=== PATIENT | male | born 1935 | race Caucasian/White ===

== ENCOUNTER → 2016-03-24 | Outpatient (CLI) | payer MEDICARE, OTHER ==
[~2016-03-24] MED LIST: GASTROGRAFIN SOLUTION 30ML (Q9963) As Ordered ONE; ISOVUE-370 76% 100ML VIAL (Q9967) As Ordered ONE
--- NOTE | 2016-03-24 16:20 | REP ---
CT abdomen and pelvis initially without contrast, with IV and oral contrast and 2-minute delayed of the abdomen performed: 03/24/2016: Comparison: CT abdomen pelvis 12/13/2015, without followed by with contrast, and CT of the abdomen pelvis 12/13/2015. Technique: After drinking two cups of oral contrast each containing 10 mL gastrographin and 290 mL water, 3 mm spiral axial sections were performed through abdomen. Subsequently following IV contrast administration of 100 mL Isovue-370 mg/ml, 3 mm spiral axial sections performed through abdomen and pelvis. Delayed 2-minute images were subsequently performed through the abdomen. Findings: There is moderate diffuse fatty infiltration of liver. The liver is 15 cm cranial caudal dimension. Spleen, pancreas are normal. Gallbladder is mildly elongated without stones, wall thickening, or biliary dilatation. There is a 3.8 cm hiatal hernia not significantly changed. The stomach is underdistended. The small bowel is without obstruction. Previous right hemicolectomy and ileocolic anastomosis noted at the level of the hepatic flexure. Kidneys are without hydronephrosis. There are bilateral extrarenal pelves, and small amount of perinephric stranding is noted bilaterally and unchanged, most compatible with scarring. Exophytic cyst of 1.7 cm diameter is noted off the posterior superior pole left kidney, stable . Atherosclerotic changes are noted in the aorta Bladder is normal. Prostate is not enlarged. There are scattered diverticula within the descending and proximal sigmoid. There is no free air or ascites. There are no lytic or blastic lesions of bone. Impression: Moderate diffuse fatty infiltration of liver without focal lesions. Prior right hemicolectomy. No evidence of bowel obstruction. Sigmoid diverticulosis. Signed by Liz Pino MD 03/24/2016 09:09 P
--- NOTE | 2016-03-24 20:51 | REP ---
CT chest with IV contrast 03/24/2016 Indication: Colon cancer restaging after 2 months 5-FU chemotherapy Comparison: CT chest 12/13/2015, PET scan 12/26/15 Technique: Following dynamic IV contrast administration with 100 ml Isovue 370 mg/ml, 3 mm contiguous spiral axial sections were performed through the chest Findings: Atherosclerotic changes are noted in the thoracic aortic arch. There is no thoracic aortic aneurysm or dissection. The heart is of normal size. There are moderate coronary artery calcifications. There are no pathologically enlarged mediastinal or hilar lymph nodes. As previously noted there is focal moderate eventration of the anterior and medial aspect of the right hemidiaphragm. There is hyperinflation bilaterally consistent with COPD. There are no infiltrates or pleural effusions. 5.5 mm ovoid nodule within the superior segment right lower lobe on image 56 is unchanged, as well as 3.7 mm round nodule, also indeterminate on image 59 series 304 in the superior segment right lower lobe. Stable focus of pleural nodularity is seen on image 60 series 304 in the right lower lobe Impression 1. COPD with three noncalcified pulmonary nodules within the right lower lobe, largest 5.5 mm maximal dimension and image 56 series 304. These are stable could represent even fibrotic scarring. However interval follow-up CT of chest is recommended in 3 months' for reevaluation. Signed by Liz Pino MD 03/24/2016 08:42 P
== END ==
LOC: M RAD 11:59
PROVIDERS: ATTEND Internal Medicine Medical Oncology
DX: C18.9 Malignant neoplasm of colon, unspecified (principal); R91.8 Other nonspecific abnormal finding of lung field; K57.30 Diverticulosis of large intestine without perforation or abscess without bleeding; K76.0 Fatty (change of) liver, not elsewhere classified; J44.9 Chronic obstructive pulmonary disease, unspecified
CPT/HCPCS: 71260; 74178; Q9963; Q9967

== ENCOUNTER → 2016-03-26 | Outpatient (REF) | payer MEDICARE, OTHER ==
[2016-03-28 09:32] LABS: CARCINOEMBRYONIC ANTIGEN 2.8 NG/ML (<2.5)
== END ==
LOC: M LAB REF 12:59
PROVIDERS: ATTEND Internal Medicine Medical Oncology
DX: C18.9 Malignant neoplasm of colon, unspecified (principal)

== ENCOUNTER → 2016-05-12 | Outpatient (REF) | payer MEDICARE, OTHER | LOC: M LAB REF 16:58 | PROVIDERS: ATTEND Internal Medicine Medical Oncology | DX: C18.9 Malignant neoplasm of colon, unspecified (principal) ==

== ENCOUNTER → 2016-06-09 | Outpatient (REF) | payer MEDICARE, OTHER | LOC: M LAB REF 13:10 | PROVIDERS: ATTEND Internal Medicine Medical Oncology | DX: C18.9 Malignant neoplasm of colon, unspecified (principal) ==

== ENCOUNTER → 2016-06-13 | Outpatient (CLI) | payer MEDICARE, OTHER ==
--- NOTE | 2016-06-13 22:47 | REP ---
CT ABDOMEN AND PELVIS WITH CONTRAST: 06/13/2016. Comparison 03/24/2016, 12/13/2015, PET/CT 12/26/2015. Clinical history: Restaging colon carcinoma. Technique: Oral Gastrografin mixture 10 ml in 290 ounces of flavored water for two doses per our bowel contrast protocol and scanning through the abdomen followed by bolus of 100 ml Isovue 370, scanning through the abdomen and pelvis and then delayed images through the abdomen. Coronal and sagittal reconstructions were obtained through the abdomen and pelvis. CT abdomen: The lung bases show no pleural effusion, focal pleural thickening or parenchymal mass. There is a small hiatal hernia. There are a couple of tiny nodules in the right lower lobe medial basal segment, unchanged from prior studies, the larger 6 mm, the smaller 5 mm. Some mild cylindrical bronchiectatic changes are noted. Heart is not enlarged. There is no pericardial thickening or effusion. Calcifications at the aortic root and mitral annulus are noted. No pericardial thickening or effusion. There is fatty infiltration of the liver. There is no hepatosplenomegaly. Eventration of the right diaphragm is noted. No hepatic mass or biliary dilatation is noted. No splenomegaly or focal lesion. I see no ascites. Gallbladder is contracted without calcified stone or mass. Adrenal glands intact. Upper pole left kidney shows an exophytic cyst as well as scarring. There is a small cortical cyst in the interpolar region of the right kidney towards the upper pole. No hydronephrosis, stone, solid mass or perinephric edema. Ureters show normal course to the bladder and without stone or filling defect, otherwise. Both kidneys show extrarenal pelves. The aorta has diffuse atherosclerotic calcifications without aneurysm or dissection. Pancreas intact. Small bowel loops and colon grossly intact. Small bowel loops are grossly intact. The colon unchanged. I see no evidence of colonic mass, colitis or diverticulitis. There is retroperitoneal mass lesion just anterior to the iliac crest and posterior to the pararenal space. It measures 3.4 cm vertically x 2.1 x 1.6 cm. On the previous study it was 2.5 x 1.8 x 1.5 cm by my direct measurement today. No ventral hernia. Bone windows show degenerative changes lumbar and lower thoracic spine with some facet arthritis, unchanged. No destructive lesion. CT pelvis: Bony hips, pelvis, sacrum, SI joints, and lumbosacral junction show degenerative changes and demineralization. There is diverticulosis distal left colon and sigmoid without diverticulitis, colitis, stricture or mass. Calcifications in the prostate, which is diminutive. There is no ventral or inguinal hernia nor pathologic inguinal adenopathy. Bladder without wall thickening, mass or stone. The ureteral dilatation. No pelvic lymphadenopathy. No perirectal space mass or inflammatory change. No ascites. Impression: 1. There is a 3.4 x 2.1 x 1.6 cm mass in the retroperitoneum on the right anterior to the iliac crest and posterior to Gerota's fascia of the pararenal space. This is increased in size as detailed above. 2. Prior right hemicolectomy with no colitis or diverticulitis. There is diverticulosis of the sigmoid. 3. Fatty infiltration of the liver without any other significant or acute finding. Signed by Mohinder Elmore MD 06/14/2016 08:11 P
== END ==
LOC: M RAD 16:02
PROVIDERS: ATTEND Internal Medicine Medical Oncology
DX: C18.9 Malignant neoplasm of colon, unspecified (principal)
CPT/HCPCS: 74178; Q9963; Q9967

== ENCOUNTER → 2016-06-25 | Outpatient (CLI) | payer MEDICARE, OTHER ==
--- NOTE | 2016-06-26 09:54 | REP ---
PET/CT: History: Restaging colon cancer. Evaluate retroperitoneal metastatic mass and rule out other foci of metastasis. Comparisons: Comparison CT study June 13, 2016 of the abdomen and pelvis. Comparison chest CT study March 24, 2016. Comparison PET/CT December 26, 2015. TECHNIQUE: 46 minutes following the intravenous injection of a 10.6 mCi dose of F-18 FDG, three-dimensional PET scintigraphy is acquired from the skull base to the proximal thighs. Triplanar noncontrast CT scanning is acquired through the same anatomic range for attenuation correction, and image registration with scan parameters optimized to minimize radiation exposure to the patient. PET scintigraphy and CT datasets were fused and displayed on a workstation with multiplanar and projection display capability. PET/CT Findings: The previously noted right iliac fossa retroperitoneal metastasis is again seen and is again noted to be hypermetabolic. Maximum standard uptake value today is 17.7, previously 26.1. It is smaller than on the comparison PET/CT, however it is larger than on the interval CT study of the abdomen from March 24, 2016. Indeed, it appears slightly larger on today's accompanying CT study than on the recent prior CT of June 13, 2016. Today's measurements are 2.7 x 1.7 x 4.1 cm. This compares with reported dimensions on June 13, 2016 of 2.1 x 1.6 x 3.4 cm. No other abdominal or pelvic hypermetabolic uptake is seen. No abnormal hepatic uptake is observed. No abnormal uptake is seen in the chest or head and neck soft tissues. Impression: The right iliac fossa retroperitoneal metastasis shows evidence of progression since the March 24, 2016 study and may even have increased in size since the June 13, 2016 CT. It remains hypermetabolic, SUV value 17.7 today. Signed by Syd Pires MD 06/26/2016 12:39 P
== END ==
LOC: M RAD 16:33
PROVIDERS: ATTEND Internal Medicine Medical Oncology
DX: C18.9 Malignant neoplasm of colon, unspecified (principal)
CPT/HCPCS: 78815; A9552

== ENCOUNTER → 2016-07-03 | Outpatient (REF) | payer MEDICARE, OTHER ==
[2016-07-03 14:11] LABS: INR 1.1
== END ==
LOC: M LAB REF 13:37
PROVIDERS: ATTEND Internal Medicine Medical Oncology
DX: C18.9 Malignant neoplasm of colon, unspecified (principal)

== ENCOUNTER → 2016-07-09 | Outpatient (REF) | payer MEDICARE, OTHER | LOC: M LAB REF 17:15 | PROVIDERS: ATTEND Internal Medicine Medical Oncology | DX: C18.9 Malignant neoplasm of colon, unspecified (principal) ==

== ENCOUNTER → 2016-07-23 | Outpatient (REF) | payer MEDICARE, OTHER ==
[2016-07-25 08:44] LABS: CARCINOEMBRYONIC ANTIGEN 17.9 NG/ML (<2.5)
== END ==
LOC: M LAB REF 16:33
PROVIDERS: ATTEND Internal Medicine Medical Oncology
DX: C18.9 Malignant neoplasm of colon, unspecified (principal)

== ENCOUNTER → 2016-08-06 | Outpatient (CLI) | payer MEDICARE, OTHER ==
--- NOTE | 2016-08-06 15:59 | REP ---
Left lower extremity Duplex Doppler venous ultrasound: Real time compression and duplex Doppler interrogation of the left lower extremity deep venous system is performed. The left common femoral, superficial femoral and popliteal veins are fully compressible with transducer pressure and demonstrate normal spontaneous and phasic flow, without evidence of deep venous thrombosis. Impression: No evidence of deep venous thrombosis of the left lower extremity femoral popliteal venous system. Signed by Christ Altman MD 08/06/2016 03:51 P
== END ==
LOC: M RAD 15:23
PROVIDERS: ATTEND Internal Medicine Medical Oncology
DX: M79.605 Pain in left leg (principal)

== ENCOUNTER → 2016-08-20 | Outpatient (REF) | payer MEDICARE, OTHER | LOC: M LAB REF 17:46 | PROVIDERS: ATTEND Internal Medicine Medical Oncology | DX: C18.9 Malignant neoplasm of colon, unspecified (principal) ==

== ENCOUNTER → 2016-09-01 | Outpatient (CLI) | payer MEDICARE, OTHER ==
--- NOTE | 2016-09-01 13:21 | REP ---
Clinical: History of colon cancer with retroperitoneal mass. Technique: Axial contrast enhanced images from the lung bases to the pubic symphysis using oral and 100 ml Isovue 370 intravenous contrast material with precontrast and delayed images of the abdomen as well as coronal and sagittal re-formations. Comparison: 06/13/2016, 03/24/2016. Findings: Small scattered pulmonary nodules are identified and appear slightly more prominent than prior examination suggesting the possibility of pulmonary metastatic disease and follow-up is recommended. Changes to the lingula and anterior left lower lobe are similar to prior examination and may represent chronic interstitial changes. Fatty infiltration to the liver noted without focal hepatic lesion identified. Spleen, pancreas, gallbladder, bilateral adrenal glands are normal. Kidneys are relatively normal / stable and again demonstrate few bilateral cysts measuring up to 1.9 cm. The enteric system is without obstruction or acute inflammatory process. A moderate hiatal hernia is identified at the gastroesophageal junction. Colonic and predominant sigmoid diverticulosis noted without acute diverticulitis. Pelvis demonstrates normal bladder. Coarse calcifications in an otherwise normal prostate gland are again identified. A small retroperitoneal soft tissue nodule in the right pericolic gutter within the pelvis currently measures 13 mm maximal diameter and demonstrates subtle surrounding fibrosis, but appears decreased in size when compared to prior examinations. No further intra-abdominal or retroperitoneal lesions or metastatic foci are identified. No ascites. No free air. No intraperitoneal or retroperitoneal adenopathy. Vasculature demonstrates atherosclerotic changes without aneurysm or dissection. Musculoskeletal structures demonstrate degenerative changes without focal osseous abnormality. Impression: 1. The previously identified nodule in the right pericolic gutter within the retroperitoneum currently measures 13 mm maximal diameter and appears decreased in size when compared to prior examination. No further scattered metastatic foci are identified within the abdomen or pelvis. 2. Diverticulosis. 3. Small to moderate hiatal hernia. 4. Fatty infiltration to the liver without focal hepatic lesion identified. 5. Small scattered noncalcified pulmonary nodules appear slightly more conspicuous than prior examination and concerning for active metastatic disease. Follow-up examination may be warranted. Signed by Gian Giordano MD 09/01/2016 01:13 P
--- NOTE | 2016-09-01 13:34 | REP ---
Clinical: Metastatic colon cancer. Technique: Axial contrast enhanced images from the thoracic inlet to the upper abdomen using 100 ml Isovue 370 intravenous contrast material with coronal and sagittal re-formations. Comparison: 12/13/2015. Findings: The lung domingo demonstrate chronic changes including no chronic interstitial changes primarily noted in the lingula and anterior left lower lobe which remain relatively stable. Few scattered noncalcified nodules are identified predominate in the right lower lung zone measuring up to approximately 6 mm and appear relatively similar to prior examination. While these findings may be stable, given the patient's history active metastatic disease cannot definitively be excluded based on short-term interval follow-up. No new acute consolidation, nodule or mass lesion otherwise appreciated. No pleural effusion/reaction or pneumothorax. Tracheobronchial tree is patent. No obvious axillary, hilar, or mediastinal adenopathy. Mediastinum demonstrates normal thoracic aorta and heart/pericardium. Moderate hiatal hernia at the gastroesophageal junction. Upper abdomen demonstrates fatty infiltration to the liver and 1.9 cm left renal cyst. Impression: 1. Lung domingo demonstrate chronic interstitial changes primarily involving the lingula and left base. Few scattered soft tissue nodules are again identified similar to 12/13/2015. While no significant change is appreciated, metastatic disease cannot definitively be excluded based on current short-term follow-up. Consider reevaluation at 3-6 months. 2. Limited abdominal findings as described above including fatty infiltration to the liver and 1.9 cm left renal cyst. Signed by Gian Giordano MD 09/01/2016 01:25 P
== END ==
LOC: M RAD 10:44
PROVIDERS: ATTEND Internal Medicine Medical Oncology
DX: C18.9 Malignant neoplasm of colon, unspecified (principal); K57.30 Diverticulosis of large intestine without perforation or abscess without bleeding; K44.9 Diaphragmatic hernia without obstruction or gangrene; K76.0 Fatty (change of) liver, not elsewhere classified; R91.8 Other nonspecific abnormal finding of lung field
CPT/HCPCS: 71260; 74178; Q9963; Q9967

== ENCOUNTER → 2016-09-02 | Outpatient (REF) | payer MEDICARE, OTHER ==
[2016-09-04 12:00] LABS: FREE T4 2.48 NG/DL (0.76-1.46); THYROXINE (T4) 16.3 UG/DL (4.5-12.0)
== END ==
LOC: M LAB REF 14:17
PROVIDERS: ATTEND Internal Medicine Medical Oncology
DX: C18.9 Malignant neoplasm of colon, unspecified (principal); Z79.899 Other long term (current) drug therapy

== ENCOUNTER → 2016-09-17 | Outpatient (REF) | payer MEDICARE, OTHER | LOC: M LAB REF 16:39 | PROVIDERS: ATTEND Internal Medicine Medical Oncology | DX: C18.9 Malignant neoplasm of colon, unspecified (principal) ==

== ENCOUNTER → 2016-10-01 | Outpatient (REF) | payer MEDICARE, OTHER | LOC: M LAB REF 16:35 | PROVIDERS: ATTEND Internal Medicine Medical Oncology | DX: C18.9 Malignant neoplasm of colon, unspecified (principal) ==

== ENCOUNTER → 2016-10-14 | Outpatient (CLI) | payer MEDICARE, OTHER ==
--- NOTE | 2016-10-15 10:15 | REP ---
Whole body PET CT scan: Comparisons are the whole-body PET CT scan dated 06/25/2016, recent CT of the chest abdomen pelvis dated 09/01/[address] of the abdomen pelvis dated 06/13/2016. Whole-body scanning is performed from skull base to the upper thighs. Neck and supraclavicular areas: There are no hypermetabolic foci. Chest: There are no hypermetabolic foci. Abdomen, pelvis and upper thighs: The previous hypermetabolic focus in the right iliac fossa is no longer present. The focal soft tissue nodule is again identified today measuring 1.4 cm in diameter, however, this nodule no longer demonstrates radio labeling. The standard uptake value today is maximally 1.2. On the comparison CT of 06/13/2016, this nodule measured 21 mm maximally and on the comparison CT of 09/01/2016, this nodule maximally measured 14 mm. This is similar to The measurement on the current PET scan today. There are no other hypermetabolic foci in the abdomen, pelvis or upper thighs. Specifically there are no hepatic foci. Impression: There are no hypermetabolic foci. The previously identified hypermetabolic focus in the right iliac fossa no longer demonstrates radiolabeling. There is a persisting 1.4 cm nodule on the accompanying CT, now likely a fibrotic node. There are no other hypermetabolic foci, as previously. The study is performed 10 mCi of F 18 FDG. Signed by Christ Garcias MD 10/15/2016 10:07 A
== END ==
LOC: M PLARAD 10:29
PROVIDERS: ATTEND Internal Medicine Medical Oncology
DX: C18.9 Malignant neoplasm of colon, unspecified (principal)
CPT/HCPCS: 78815; A9552

== ENCOUNTER → 2016-12-22 | Outpatient (REF) | payer MEDICARE, OTHER | LOC: M LAB REF 13:15 | PROVIDERS: ATTEND Internal Medicine Medical Oncology | DX: D69.6 Thrombocytopenia, unspecified (principal) ==

== ENCOUNTER → 2017-01-20 | Outpatient (CLI) | payer MEDICARE, OTHER ==
--- NOTE | 2017-01-20 13:38 | REP ---
Clinical: Colon cancer for restaging and follow-up. Technique: Axial contrast enhanced images from the lung bases to the pubic symphysis using oral and 100 ml Isovue 370 intravenous contrast material with precontrast and delayed images of the abdomen as well as coronal and sagittal re-formations. Comparison: 09/01/2016. Findings: Lung bases demonstrate few small scattered pulmonary noncalcified nodules - the largest of which are noted in the medial posterior right lower lobe (images 1 - 4) which appear less prominent than prior examination. Atherosclerotic changes to the thoracic aorta and coronary arteries noted without cardiomegaly. Moderate hiatal hernia at the gastroesophageal junction. Liver, spleen, pancreas, gallbladder, and bilateral adrenal glands are normal / stable. The kidneys demonstrate age-related atrophy and cortical thinning along with 1.7 cm stable left renal cyst and suspected bilateral subcentimeter cysts. Evaluation of the enteric system again demonstrates prior right hemicolectomy with anterior colonic anastomosis at the mid transverse colon. Colonic diverticulosis noted. No acute bowel obstruction or inflammatory process identified. Pelvis demonstrates normal bladder and age appropriate prostate/seminal vesicles. The previously noted soft tissue nodule in the right pericolic gutter which measured approximately 1.5 cm. Identified on current examination. No ascites. No obvious intraperitoneal or retroperitoneal adenopathy. No focal mass lesion. Atherosclerotic changes of the aorta and vasculature noted without aneurysm. Musculoskeletal structures demonstrate age-related degenerative changes without focal osseous abnormality. Impression: 1. The previously identified soft tissue nodule along the right pericolic gutter is no longer visualized on current examination. 2. Small noncalcified pulmonary nodules appeared decreased in size and improved. 3. Diverticulosis without acute diverticulitis. 4. Stable hiatal hernia. 5. No acute abdominopelvic pathology and no evidence for recurrence or new mass lesion. Signed by Gian Giordano MD 01/20/2017 01:30 P
--- NOTE | 2017-01-20 13:44 | REP ---
Clinical: History of colon cancer for restaging and follow-up. Technique: Axial contrast enhanced images from the thoracic inlet to the upper abdomen using 100 ml Isovue 370 intravenous contrast material with coronal and sagittal re-formations. Comparison: 09/01/2016. Findings: The bilateral lung domingo are relatively symmetric and well-aerated. Mild scattered age-related chronic interstitial changes are again noted along with mild chronic bronchiectasis. Areas of chronic scarring are most pronounced at the lingula and bilateral bases (left greater than right). Small scattered noncalcified pulmonary nodules measuring up to approximately 3.5 mm are identified predominantly in the right lower lobe and to a lesser extent the lingula and left lower lobe which remain stable or appear less conspicuous than prior examination. No new acute consolidation, significant nodule or mass lesion is appreciated. No pleural effusion/reaction or pneumothorax. Tracheobronchial tree is patent. No axillary, hilar, or mediastinal adenopathy. Atherosclerotic changes to the thoracic aorta and coronary arteries noted without aortic aneurysm/dissection. Mild cardiomegaly is suggested without pericardial effusion. Musculoskeletal structures demonstrate age-related degenerative changes without focal osseous abnormality. Limited evaluation of the upper abdomen demonstrates stable left renal hypodensity compatible with cyst and normal bilateral adrenal glands. Impression: Chronic-appearing interstitial changes and small scattered noncalcified nodules which appear less conspicuous than prior examination. No enlarging nodule or mass lesion is appreciated and there is no evidence for acute mediastinal or pleuroparenchymal process. Signed by Gian Giordano MD 01/20/2017 01:36 P
== END ==
LOC: M RAD 10:56
PROVIDERS: ATTEND Internal Medicine Medical Oncology
DX: C18.9 Malignant neoplasm of colon, unspecified (principal); K44.9 Diaphragmatic hernia without obstruction or gangrene
CPT/HCPCS: 71260; 74178; Q9963; Q9967

== ENCOUNTER → 2017-01-26 | Outpatient (REF) | payer MEDICARE, OTHER ==
[2017-01-26 17:29] LABS: ALBUMIN 4.1 GM/DL (3.2-5.2); ALBUMIN/GLOBULIN RATIO 1.32 (1.00-1.93); BILIRUBIN,TOTAL 0.5 MG/DL (0.2-1.0); CALCIUM LEVEL 9.1 MG/DL (8.8-10.2); CREATININE FOR GFR 1.23 MG/DL (0.70-1.30); GLOMERULAR FILTRATION RATE 59.8 (>35); POTASSIUM SERUM 3.9 MEQ/L (3.5-5.1); TOTAL PROTEIN 7.2 GM/DL (6.4-8.2)
== END ==
LOC: M LAB REF 12:40
PROVIDERS: ATTEND Internal Medicine Medical Oncology
DX: C18.9 Malignant neoplasm of colon, unspecified (principal)

== ENCOUNTER → 2017-02-19 | Outpatient (REF) | payer MEDICARE, OTHER | LOC: M LAB REF 14:10 | PROVIDERS: ATTEND Dermatology | DX: Z51.81 Encounter for therapeutic drug level monitoring (principal); Z79.899 Other long term (current) drug therapy ==

== ENCOUNTER → 2017-05-07 | Outpatient (REF) | payer MEDICARE, OTHER ==
[2017-05-07 11:38] LABS: HEMATOCRIT 39.9 % (42.0-52.0); HEMOGLOBIN 13.5 g/dl (14.0-18.0); MEAN CORPUSCULAR HEMOGLOBIN 30.7 pg (27.0-33.0); MEAN CORPUSCULAR HGB CONC 33.8 g/dl (32.0-36.5); MEAN CORPUSCULAR VOLUME 90.7 fl (80.0-96.0); PLATELET COUNT, AUTOMATED 283 10^3/uL (150-450); RED CELL DISTRIBUTION WIDTH 12.5 % (11.5-14.5); RETIC HEMOGLOBIN EQUIVALENT 36.6 pg (24-36); RETICULOCYTE # 72.6 10^9/L (17-77); RETICULOCYTE % 1.7 % (0.5-1.5); WHITE BLOOD COUNT 7.6 10^3/uL (4.0-10.0)
[2017-05-07 12:14] LABS: ALBUMIN 3.8 GM/DL (3.2-5.2); ALBUMIN/GLOBULIN RATIO 1.23 (1.00-1.93); ALKALINE PHOSPHATASE 65 U/L (45-117); ALT/SGPT 21 U/L (12-78); ANION GAP 10 MEQ/L (8-16); AST/SGOT 25 U/L (7-37); BILIRUBIN,TOTAL 0.6 MG/DL (0.2-1.0); BLOOD UREA NITROGEN 19 MG/DL (7-18); CALCIUM LEVEL 9.1 MG/DL (8.8-10.2); CARBON DIOXIDE LEVEL 28 MEQ/L (21-32); CHLORIDE LEVEL 99 MEQ/L (98-107); CHOLESTEROL LEVEL 133 MG/DL (<200); CHOLESTEROL RISK RATIO 3.911 (<5); CREATININE FOR GFR 1.02 MG/DL (0.70-1.30); FERRITIN 45 NG/ML (26-388); GLOMERULAR FILTRATION RATE > 60.0 (>35); GLUCOSE, FASTING 128 MG/DL (70-100); HDL CHOLESTEROL 34 MG/DL (>40); IRON (FE) 94 UG/DL (65-175); LDL CHOLESTEROL 58.6 MG/DL (<100); NON-HDL-C 99 MG/DL; POTASSIUM SERUM 4.4 MEQ/L (3.5-5.1); PROSTATIC SPECIFIC AG MONITOR 0.29 NG/ML (< 4.0); SODIUM LEVEL 137 MEQ/L (136-145); TOTAL IRON BINDING CAPACITY 324 UG/DL (250-450); TOTAL PROTEIN 6.9 GM/DL (6.4-8.2); TRIGLYCERIDES LEVEL 202 MG/DL (<150)
[2017-05-07 13:00] LABS: ESTIMATED AVERAGE GLUCOSE 143 MG/DL (60-110); HEMOGLOBIN A1c 6.6 %
[2017-05-07 17:51] LABS: CREATININE, URINE 72.7 MG/DL; MALB URINE SIEMENS 16.1 MG/L; MAU/CREAT RATIO 22.1 MCG/MG (0.0-30.0)
== END ==
LOC: M SFHCCLAY 08:39
DX: D50.0 Iron deficiency anemia secondary to blood loss (chronic) (principal); I25.10 Atherosclerotic heart disease of native coronary artery without angina pectoris; E78.2 Mixed hyperlipidemia; R73.9 Hyperglycemia, unspecified; I10 Essential (primary) hypertension; C61 Malignant neoplasm of prostate
CPT/HCPCS: 83550

== ENCOUNTER → 2017-06-24 | Outpatient (REF) | payer MEDICARE, OTHER ==
[2017-06-26 11:05] LABS: CARCINOEMBRYONIC ANTIGEN 2.6 NG/ML (<2.5)
== END ==
LOC: M LAB REF 17:44
DX: C76.3 Malignant neoplasm of pelvis (principal); C18.3 Malignant neoplasm of hepatic flexure
CPT/HCPCS: 82378

== ENCOUNTER → 2017-08-05 | Outpatient (CLI) | payer MEDICARE, OTHER ==
[~2017-08-05] MED LIST changes: +GASTROGRAFIN SOLUTION 30ML (Q9963) As Ordered; -GASTROGRAFIN SOLUTION 30ML (Q9963) As Ordered ONE; +ISOVUE-370 76% 100ML VIAL (Q9967) As Ordered; -ISOVUE-370 76% 100ML VIAL (Q9967) As Ordered ONE
== END ==
LOC: M RAD 09:27
DX: C18.9 Malignant neoplasm of colon, unspecified (principal); J84.9 Interstitial pulmonary disease, unspecified; K76.0 Fatty (change of) liver, not elsewhere classified; N28.1 Cyst of kidney, acquired; K57.90 Diverticulosis of intestine, part unspecified, without perforation or abscess without bleeding
CPT/HCPCS: Q9963

== ENCOUNTER → 2017-08-11 | Outpatient (REF) | payer MEDICARE, OTHER ==
[2017-08-11 19:11] LABS: CARCINOEMBRYONIC ANTIGEN 2.1 NG/ML (<2.5)
== END ==
LOC: M LAB REF 17:43
DX: R97.0 Elevated carcinoembryonic antigen [CEA] (principal)
CPT/HCPCS: 82378

== ENCOUNTER → 2017-11-18 | Outpatient (REF) | payer MEDICARE, OTHER ==
[2017-11-18 12:02] LABS: HEMATOCRIT 41.8 % (42.0-52.0); HEMOGLOBIN 14.4 g/dl (13.5-17.5); MEAN CORPUSCULAR HEMOGLOBIN 30.9 pg (27.0-33.0); MEAN CORPUSCULAR HGB CONC 34.4 g/dl (32.0-36.5); MEAN CORPUSCULAR VOLUME 89.7 fl (80.0-96.0); PLATELET COUNT, AUTOMATED 274 10^3/uL (150-450); RED BLOOD COUNT 4.66 10^6/uL (4.30-6.10); RED CELL DISTRIBUTION WIDTH 12.5 % (11.5-14.5); WHITE BLOOD COUNT 6.9 10^3/uL (4.0-10.0)
[2017-11-18 12:27] LABS: ALBUMIN 4.1 GM/DL (3.2-5.2); ALBUMIN/GLOBULIN RATIO 1.32 (1.00-1.93); ALKALINE PHOSPHATASE 64 U/L (45-117); ALT/SGPT 33 U/L (12-78); ANION GAP 5 MEQ/L (8-16); AST/SGOT 26 U/L (7-37); BILIRUBIN,TOTAL 0.7 MG/DL (0.2-1.0); BLOOD UREA NITROGEN 23 MG/DL (7-18); CALCIUM LEVEL 9.1 MG/DL (8.8-10.2); CARBON DIOXIDE LEVEL 31 MEQ/L (21-32); CHLORIDE LEVEL 100 MEQ/L (98-107); CREATININE FOR GFR 1.13 MG/DL (0.70-1.30); GLOMERULAR FILTRATION RATE > 60.0 (>35); GLUCOSE, FASTING 127 MG/DL (70-100); POTASSIUM SERUM 4.1 MEQ/L (3.5-5.1); SODIUM LEVEL 136 MEQ/L (136-145); TOTAL PROTEIN 7.2 GM/DL (6.4-8.2)
[2017-11-18 12:28] LABS: ESTIMATED AVERAGE GLUCOSE 120 MG/DL (60-110); HEMOGLOBIN A1c 5.8 %
[2017-11-20 12:27] LABS: MALB URINE SIEMENS 10.2 MG/L
[2017-11-20 12:31] LABS: MAU/CREAT RATIO 7.7 MCG/MG (0.0-30.0)
== END ==
LOC: M SFHCCLAY 08:23
DX: D50.9 Iron deficiency anemia, unspecified (principal); E11.9 Type 2 diabetes mellitus without complications
CPT/HCPCS: 80053

== ENCOUNTER → 2017-12-15 | Outpatient (REF) | payer MEDICARE, OTHER ==
[2017-12-15 18:59] LABS: BASO # 0.1 10^3/uL (0.0-0.2); BASO % 1.2 % (0.0-1.0); EOS # 0.9 10^3/uL (0.0-0.50); EOS % 11.2 % (0.0-3.0); HEMATOCRIT 41.5 % (42.0-52.0); HEMOGLOBIN 13.8 g/dl (13.5-17.5); IMMATURE GRANULOCYTE % 0.5 % (0-3.0); LYMPH # 2.5 10^3/uL (1.5-4.5); LYMPH % 30.5 % (24.0-44.0); MEAN CORPUSCULAR HEMOGLOBIN 30.4 pg (27.0-33.0); MEAN CORPUSCULAR HGB CONC 33.3 g/dl (32.0-36.5); MEAN CORPUSCULAR VOLUME 91.4 fl (80.0-96.0); MONO # 0.9 10^3/uL (0.0-0.8); MONO % 10.6 % (0.0-5.0); NEUTROPHILS # 3.7 10^3/uL (1.8-7.7); PLATELET COUNT, AUTOMATED 275 10^3/uL (150-450); RED BLOOD COUNT 4.54 10^6/uL (4.30-6.10); RED CELL DISTRIBUTION WIDTH 12.6 % (11.5-14.5)
[2017-12-15 19:22] LABS: ALBUMIN 3.7 GM/DL (3.2-5.2); ALBUMIN/GLOBULIN RATIO 1.16 (1.00-1.93); ALKALINE PHOSPHATASE 66 U/L (45-117); ALT/SGPT 35 U/L (12-78); ANION GAP 10 MEQ/L (8-16); AST/SGOT 30 U/L (7-37); BILIRUBIN,TOTAL 0.6 MG/DL (0.2-1.0); BLOOD UREA NITROGEN 16 MG/DL (7-18); CALCIUM LEVEL 8.6 MG/DL (8.8-10.2); CARBON DIOXIDE LEVEL 27 MEQ/L (21-32); CARCINOEMBRYONIC ANTIGEN 1.4 NG/ML (<2.5); CHLORIDE LEVEL 99 MEQ/L (98-107); CREATININE FOR GFR 1.11 MG/DL (0.70-1.30); GLOMERULAR FILTRATION RATE > 60.0 (>35); GLUCOSE, FASTING 116 MG/DL (70-100); POTASSIUM SERUM 4.2 MEQ/L (3.5-5.1); SODIUM LEVEL 136 MEQ/L (136-145); TOTAL PROTEIN 6.9 GM/DL (6.4-8.2)
== END ==
LOC: M LABDRAWC 16:26
DX: C18.9 Malignant neoplasm of colon, unspecified (principal)
CPT/HCPCS: 82378

== ENCOUNTER → 2018-03-17 | Outpatient (REF) | payer MEDICARE, OTHER ==
[~2018-03-17] MED LIST changes: +ATOR1TAB19 PO; +CARV25TA PO; +COSE1INJ SC; +FOSI20TA3 PO; -GASTROGRAFIN SOLUTION 30ML (Q9963) As Ordered; +INDA25TAB PO; -ISOVUE-370 76% 100ML VIAL (Q9967) As Ordered; +METR0.7533 TOP; +MULTCAP PO
[2018-03-17 11:58] LABS: HEMATOCRIT 40.7 % (42.0-52.0); MEAN CORPUSCULAR HEMOGLOBIN 30.4 pg (27.0-33.0); MEAN CORPUSCULAR HGB CONC 34.4 g/dl (32.0-36.5); MEAN CORPUSCULAR VOLUME 88.3 fl (80.0-96.0); PLATELET COUNT, AUTOMATED 252 10^3/uL (150-450); RED BLOOD COUNT 4.61 10^6/uL (4.30-6.10); WHITE BLOOD COUNT 7.6 10^3/uL (4.0-10.0)
[2018-03-17 12:27] LABS: ALT/SGPT 41 U/L (12-78); BILIRUBIN,TOTAL 0.7 MG/DL (0.2-1.0); BLOOD UREA NITROGEN 22 MG/DL (7-18); CALCIUM LEVEL 9.1 MG/DL (8.8-10.2); CARBON DIOXIDE LEVEL 29 MEQ/L (21-32); CHLORIDE LEVEL 99 MEQ/L (98-107); CREATININE FOR GFR 1.16 MG/DL (0.70-1.30); GLOMERULAR FILTRATION RATE > 60.0 (>35); GLUCOSE, FASTING 135 MG/DL (70-100); POTASSIUM SERUM 4.4 MEQ/L (3.5-5.1); SODIUM LEVEL 136 MEQ/L (136-145)
== END ==
LOC: M LABDRAWC 11:18
PROVIDERS: ATTEND Internal Medicine Medical Oncology
DX: Z85.46 Personal history of malignant neoplasm of prostate (principal)

== ENCOUNTER → 2018-06-02 | Outpatient (REF) | payer MEDICARE, OTHER ==
[2018-06-02 11:42] LABS: HEMATOCRIT 41.4 % (42.0-52.0); MEAN CORPUSCULAR HEMOGLOBIN 30.6 pg (27.0-33.0); MEAN CORPUSCULAR HGB CONC 33.8 g/dl (32.0-36.5); MEAN CORPUSCULAR VOLUME 90.4 fl (80.0-96.0); PLATELET COUNT, AUTOMATED 260 10^3/uL (150-450); RED BLOOD COUNT 4.58 10^6/uL (4.30-6.10); WHITE BLOOD COUNT 7.9 10^3/uL (4.0-10.0)
[2018-06-02 11:49] LABS: ALBUMIN 4.1 GM/DL (3.2-5.2); ALT/SGPT 43 U/L (12-78); BILIRUBIN,TOTAL 0.7 MG/DL (0.2-1.0); BLOOD UREA NITROGEN 18 MG/DL (7-18); CALCIUM LEVEL 8.5 MG/DL (8.8-10.2); CARBON DIOXIDE LEVEL 29 MEQ/L (21-32); CHLORIDE LEVEL 100 MEQ/L (98-107); CHOLESTEROL LEVEL 117 MG/DL (<200); CHOLESTEROL RISK RATIO 4.034 (<5); CREATININE FOR GFR 1.15 MG/DL (0.70-1.30); GLOMERULAR FILTRATION RATE > 60.0 (>35); GLUCOSE, FASTING 147 MG/DL (70-100); HDL CHOLESTEROL 29 MG/DL (>40); LDL CHOLESTEROL 49 MG/DL (<100); NON-HDL-C 88 MG/DL; POTASSIUM SERUM 4.1 MEQ/L (3.5-5.1); SODIUM LEVEL 136 MEQ/L (136-145); TRIGLYCERIDES LEVEL 194 MG/DL (<150)
[2018-06-02 12:05] LABS: HEMOGLOBIN A1c 6.6 %
== END ==
LOC: M SFHCCLAY 08:49
PROVIDERS: ATTEND Family Medicine
DX: I25.10 Atherosclerotic heart disease of native coronary artery without angina pectoris (principal); D50.9 Iron deficiency anemia, unspecified; E11.9 Type 2 diabetes mellitus without complications; E78.2 Mixed hyperlipidemia

== ENCOUNTER → 2018-07-12 | Outpatient (REF) | payer MEDICARE, OTHER ==
[~2018-07-12] MED LIST changes: -FOSI20TA3 PO; +FOSI20TA60 PO
[2018-07-12 13:45] LABS: BASO # 0.1 10^3/uL (0.0-0.2); BASO % 0.9 % (0.0-1.0); EOS # 0.6 10^3/uL (0.0-0.50); EOS % 7.6 % (0.0-3.0); HEMATOCRIT 40.9 % (42.0-52.0); LYMPH % 27.1 % (24.0-44.0); MEAN CORPUSCULAR HEMOGLOBIN 30.6 pg (27.0-33.0); MEAN CORPUSCULAR HGB CONC 34.2 g/dl (32.0-36.5); MEAN CORPUSCULAR VOLUME 89.3 fl (80.0-96.0); MONO # 0.7 10^3/uL (0.0-0.8); MONO % 8.7 % (0.0-5.0); NEUTROPHILS # 4.1 10^3/uL (1.8-7.7); NEUTROPHILS % 55.6 % (36.0-66.0); PLATELET COUNT, AUTOMATED 279 10^3/uL (150-450); RED BLOOD COUNT 4.58 10^6/uL (4.30-6.10); WHITE BLOOD COUNT 7.5 10^3/uL (4.0-10.0)
[2018-07-12 13:49] LABS: ALBUMIN 3.9 GM/DL (3.2-5.2); ALT/SGPT 43 U/L (12-78); BILIRUBIN,TOTAL 0.7 MG/DL (0.2-1.0); BLOOD UREA NITROGEN 23 MG/DL (7-18); CALCIUM LEVEL 8.6 MG/DL (8.8-10.2); CARBON DIOXIDE LEVEL 26 MEQ/L (21-32); CHLORIDE LEVEL 101 MEQ/L (98-107); CREATININE FOR GFR 1.22 MG/DL (0.70-1.30); GLOMERULAR FILTRATION RATE > 60.0 (>35); GLUCOSE, FASTING 139 MG/DL (70-100); SODIUM LEVEL 135 MEQ/L (136-145); TOTAL PROTEIN 7.2 GM/DL (6.4-8.2)
== END ==
LOC: M LABDRAWC 12:43
PROVIDERS: ATTEND Internal Medicine Medical Oncology
DX: Z00.00 Encounter for general adult medical examination without abnormal findings (principal); E11.9 Type 2 diabetes mellitus without complications; I10 Essential (primary) hypertension; I25.10 Atherosclerotic heart disease of native coronary artery without angina pectoris; E78.2 Mixed hyperlipidemia; Z85.038 Personal history of other malignant neoplasm of large intestine; H91.93 Unspecified hearing loss, bilateral; Z85.46 Personal history of malignant neoplasm of prostate

== ENCOUNTER → 2018-07-13 | Outpatient (CLI) | payer MEDICARE, OTHER ==
--- NOTE | 2018-07-13 15:54 | REP ---
PET/CT: History: Restaging colon carcinoma. Originally diagnosed in 2016 with a right retroperitoneal recurrence in 2017. The patient is status post chemotherapy and metastectomy. Comparisons: PET-CT studies are reviewed from October 14, 2016, June 25, 2016, and December 26, 2015. TECHNIQUE: 52 minutes following the intravenous injection of a 10.2 mCi dose of F-18 FDG, three-dimensional PET scintigraphy is acquired from the skull base to the proximal thighs. Triplanar noncontrast CT scanning is acquired through the same anatomic range for attenuation correction, and image registration with scan parameters optimized to minimize radiation exposure to the patient. PET scintigraphy and CT datasets were fused and displayed on a workstation with multiplanar and projection display capability. PET/CT Findings: There is no abnormal hypermetabolic uptake at the previously noted site of the right retroperitoneal soft tissue mass. This has been removed. Normal appearing small bowel loops are noted here. There is no abnormal hypermetabolic uptake in the abdomen or pelvis. No abnormal maxi uptake is seen. No abnormal hepatic uptake is appreciated. There is no abnormal hypermetabolic uptake in the chest or head and neck region. There is a sliding type hiatal hernia. No pulmonary parenchymal nodule is appreciated. Impression: Negative PET-CT study. No scintigraphic evidence to suggest recurrence. Electronically Signed by Syd Pires MD 07/13/2018 10:32 P
== END ==
LOC: M PLARAD 11:16
PROVIDERS: ATTEND Internal Medicine Medical Oncology
DX: C18.6 Malignant neoplasm of descending colon (principal); Z92.21 Personal history of antineoplastic chemotherapy; K44.9 Diaphragmatic hernia without obstruction or gangrene
CPT/HCPCS: 78815; A9552

== ENCOUNTER → 2018-12-22 | Outpatient (REF) | payer MEDICARE, OTHER ==
[2018-12-22 12:47] LABS: BLOOD UREA NITROGEN 22 MG/DL (7-18); CALCIUM LEVEL 9.5 MG/DL (8.8-10.2); CARBON DIOXIDE LEVEL 30 MEQ/L (21-32); CHLORIDE LEVEL 100 MEQ/L (98-107); CREATININE FOR GFR 1.12 MG/DL (0.70-1.30); GLOMERULAR FILTRATION RATE > 60.0 (>35); GLUCOSE, FASTING 154 MG/DL (70-100); POTASSIUM SERUM 4.7 MEQ/L (3.5-5.1); SODIUM LEVEL 135 MEQ/L (136-145)
[2018-12-22 12:53] LABS: HEMOGLOBIN A1c 6.3 %
== END ==
LOC: M SFHCCLAY 08:00
PROVIDERS: ATTEND Family Medicine
DX: E11.9 Type 2 diabetes mellitus without complications (principal)

== ENCOUNTER → 2019-01-04 | Outpatient (CLI) | payer MEDICARE, OTHER ==
--- NOTE | 2019-01-09 06:17 | ECHO ---
DATE OF PROCEDURE: 01/04/2019 DATE OF : 1935 AGE: 83 REFERRING PROVIDER: Dr. Bandar Miller PATIENT LOCATION: Outpatient REASON FOR THE ECHOCARDIOGRAM: Heart murmur. 2-D MEASUREMENTS: IVS: 0.7 cm LV: 5.5 cm LVPW: 0.9 cm LA: 3.9 cm Aorta: 3.8 cm DOPPLER MEASUREMENTS: Peak velocity across the aortic valve: 2.5 m/s Peak gradient across the aortic valve: 25 mmHg Mean gradient across aortic valve: 14 mmHg Maximum tricuspid valve velocity: 2.6 m/s 2-D COMMENTS: 1. Normal left ventricular size, wall thickness, and normal global left ventricular systolic function. The estimated ventricular systolic ejection fraction is 60%. 2. Normal left atrium. Normal right atrium and right ventricle. 3. The atrial septum appeared to be normal without evidence of defect or shunt. 4. Mildly dilated aortic root at 3.8 cm. 5. No pericardial effusion seen. 6. Mildly calcified aortic valve with minimally restricted leaflet motion. No mitral valve, tricuspid valve. The pulmonic valve and proximal pulmonary artery branches were not well visualized. 7. The inferior vena cava was not well visualized. DOPPLER: It detects mild aortic regurgitation, trace mitral regurgitation, and mild tricuspid regurgitation. The calculated pulmonary artery systolic pressure varies between 30-40 mmHg. Subjectively, there are some features of grade 1 left ventricular diastolic dysfunction manifested by abnormal relaxation. IMPRESSION: 1. Normal global left ventricular systolic function. There are some features of grade 1 left ventricular diastolic dysfunction manifested by abnormal relaxation. 2. Aortic valve sclerosis with mildly aortic radiation and mild aortic stenosis. 3. Trace mitral regurgitation. 4. Mild tricuspid regurgitation with mild pulmonary hypertension. 5. Mildly dilated aortic root at 3.8 cm. 6. The pulmonic valve and proximal pulmonary artery branches were not well visualized.
== END ==
LOC: M CARPUL 08:42
PROVIDERS: ATTEND Family Medicine
DX: R01.1 Cardiac murmur, unspecified (principal)

== ENCOUNTER → 2019-01-13 | Outpatient (REF) | payer MEDICARE, OTHER ==
[2019-01-13 12:34] LABS: BASO # 0.1 10^3/uL (0.0-0.2); BASO % 1.2 % (0.0-1.0); EOS # 0.7 10^3/uL (0.0-0.5); EOS % 9.1 % (0.0-3.0); HEMOGLOBIN 13.7 g/dl (13.5-17.5); LYMPH # 2.2 10^3/uL (1.5-5.0); LYMPH % 28.2 % (24.0-44.0); MEAN CORPUSCULAR HEMOGLOBIN 31.4 pg (27.0-33.0); MEAN CORPUSCULAR HGB CONC 34.3 g/dl (32.0-36.5); MEAN CORPUSCULAR VOLUME 91.7 fl (80.0-96.0); MONO # 0.7 10^3/uL (0.0-0.8); MONO % 9.6 % (0.0-5.0); NEUTROPHILS % 51.6 % (36.0-66.0); PLATELET COUNT, AUTOMATED 260 10^3/uL (150-450); RED BLOOD COUNT 4.36 10^6/uL (4.30-6.10); WHITE BLOOD COUNT 7.7 10^3/uL (4.0-10.0)
[2019-01-13 12:44] LABS: ALBUMIN 3.9 GM/DL (3.2-5.2); ALT/SGPT 46 U/L (12-78); BILIRUBIN,TOTAL 0.9 MG/DL (0.2-1.0); BLOOD UREA NITROGEN 19 MG/DL (7-18); CARBON DIOXIDE LEVEL 30 MEQ/L (21-32); CHLORIDE LEVEL 99 MEQ/L (98-107); CREATININE FOR GFR 1.15 MG/DL (0.70-1.30); GLOMERULAR FILTRATION RATE > 60.0 (>35); GLUCOSE, FASTING 143 MG/DL (70-100); POTASSIUM SERUM 4.3 MEQ/L (3.5-5.1); SODIUM LEVEL 136 MEQ/L (136-145); TOTAL PROTEIN 6.9 GM/DL (6.4-8.2)
== END ==
LOC: M LABDRAWC 12:02
PROVIDERS: ATTEND Internal Medicine Medical Oncology
DX: C61 Malignant neoplasm of prostate (principal); Z79.899 Other long term (current) drug therapy

== ENCOUNTER → 2019-07-20 | Outpatient (REF) | payer MEDICARE, OTHER ==
[~2019-07-20] MED LIST changes: +FOSI20TA79 PO
== END ==
LOC: M SFHCADAM 17:13
PROVIDERS: ATTEND Family Medicine
DX: R35.0 Frequency of micturition (principal)
CPT/HCPCS: 81002; 87086; G0463

== ENCOUNTER → 2019-08-30 | Outpatient (REF) | payer MEDICARE, OTHER ==
--- NOTE | 2019-09-04 14:32 | MEDONC ---
MEDICAL ONCOLOGY TELEPHONE NOTE: DATE OF SERVICE: 08/30/2019 Mr. Joyce's CEA is 1.9 on 08/30/2019. It has been a sensitive indicator of disease recurrence in his case. Because of his multiple comorbidities, he is requesting minimal medical oncology visit. I spoke with his . We agreed Mr. Moya would return for office visit in 4 months with CBC, CMP, CEA. In the meanwhile, he would like to avoid scans. He is doing well. She reports no new issues or problems. Memory is becoming an issue. Electronically Signed by Loretta Agee MD 09/05/2019 10:12 A DD: Loretta Agee MD 08/31/2019 07:35 A DT: bing 09/04/2019 02:28 P CC:
== END ==
LOC: M LABDRAWC 11:20
PROVIDERS: ATTEND Internal Medicine Medical Oncology
DX: Z85.46 Personal history of malignant neoplasm of prostate (principal); R97.0 Elevated carcinoembryonic antigen [CEA]

== ENCOUNTER → 2019-12-21 | Outpatient (REF) | payer MEDICARE, OTHER ==
[2019-12-21 11:57] LABS: BASO # 0.1 10^3/uL (0.0-0.2); BASO % 1.2 % (0.0-1.0); EOS # 0.7 10^3/uL (0.0-0.5); HEMATOCRIT 42.9 % (42.0-52.0); HEMOGLOBIN 14.4 g/dl (13.5-17.5); LYMPH # 1.7 10^3/uL (1.5-5.0); LYMPH % 21.8 % (24.0-44.0); MEAN CORPUSCULAR HEMOGLOBIN 30.6 pg (27.0-33.0); MEAN CORPUSCULAR HGB CONC 33.6 g/dl (32.0-36.5); MEAN CORPUSCULAR VOLUME 91.1 fl (80.0-96.0); MONO # 0.7 10^3/uL (0.0-0.8); MONO % 8.8 % (0.0-5.0); NEUTROPHILS # 4.6 10^3/uL (1.5-8.5); NEUTROPHILS % 58.8 % (36.0-66.0); PLATELET COUNT, AUTOMATED 268 10^3/uL (150-450); RED BLOOD COUNT 4.71 10^6/uL (4.30-6.10); WHITE BLOOD COUNT 7.8 10^3/uL (4.0-10.0)
[2019-12-21 12:25] LABS: ALBUMIN 3.9 GM/DL (3.2-5.2); ALT/SGPT 41 U/L (12-78); BILIRUBIN,TOTAL 0.6 MG/DL (0.2-1.0); BLOOD UREA NITROGEN 20 MG/DL (7-18); CALCIUM LEVEL 9.2 MG/DL (8.8-10.2); CARBON DIOXIDE LEVEL 29 MEQ/L (21-32); CHLORIDE LEVEL 97 MEQ/L (98-107); CREATININE FOR GFR 1.19 MG/DL (0.70-1.30); GLOMERULAR FILTRATION RATE > 60.0 (>35); GLUCOSE, FASTING 158 MG/DL (70-100); POTASSIUM SERUM 4.2 MEQ/L (3.5-5.1); SODIUM LEVEL 133 MEQ/L (136-145); TOTAL PROTEIN 7.1 GM/DL (6.4-8.2)
== END ==
LOC: M LABDRAWC 11:29
PROVIDERS: ATTEND Internal Medicine Medical Oncology
DX: C18.9 Malignant neoplasm of colon, unspecified (principal)

== ENCOUNTER → 2020-03-20 | Outpatient (REF) | payer MEDICARE, OTHER ==
[2020-03-20 13:51] LABS: HEPATITIS B SURFACE ANTIGEN NEGATIVE (NEGATIVE); HEPATITIS C VIRUS ABY INDEX < 0.0 INDEX (<0.8)
== END ==
LOC: M LABDRAWC 11:34
DX: L40.0 Psoriasis vulgaris (principal)

== ENCOUNTER → 2020-06-20 | Outpatient (REF) | payer MEDICARE, OTHER ==
[2020-06-20 13:42] LABS: BASO # 0.1 10^3/uL (0.0-0.2); BASO % 1.3 % (0.0-1.0); EOS # 0.7 10^3/uL (0.0-0.5); EOS % 9.4 % (0.0-3.0); HEMATOCRIT 42.8 % (42.0-52.0); HEMOGLOBIN 14.5 g/dl (13.5-17.5); LYMPH # 1.9 10^3/uL (1.5-5.0); LYMPH % 24.1 % (24.0-44.0); MEAN CORPUSCULAR HEMOGLOBIN 31.2 pg (27.0-33.0); MEAN CORPUSCULAR HGB CONC 33.9 g/dl (32.0-36.5); MONO # 0.7 10^3/uL (0.0-0.8); MONO % 8.8 % (2.0-8.0); NEUTROPHILS # 4.4 10^3/uL (1.5-8.5); PLATELET COUNT, AUTOMATED 291 10^3/uL (150-450); RED BLOOD COUNT 4.65 10^6/uL (4.30-6.10); WHITE BLOOD COUNT 7.8 10^3/uL (4.0-10.0)
[2020-06-20 17:26] LABS: ALT/SGPT 38 U/L (12-78); BILIRUBIN,TOTAL 0.7 MG/DL (0.2-1.0); BLOOD UREA NITROGEN 21 MG/DL (7-18); CALCIUM LEVEL 9.7 MG/DL (8.8-10.2); CARBON DIOXIDE LEVEL 29 MEQ/L (21-32); CHLORIDE LEVEL 96 MEQ/L (98-107); CREATININE FOR GFR 1.11 MG/DL (0.70-1.30); GLOMERULAR FILTRATION RATE > 60.0 (>35); GLUCOSE, FASTING 155 MG/DL (70-100); SODIUM LEVEL 133 MEQ/L (136-145); TOTAL PROTEIN 7.1 GM/DL (6.4-8.2)
== END ==
LOC: M LABDRAWC 11:53
PROVIDERS: ATTEND Specialist
DX: C18.9 Malignant neoplasm of colon, unspecified (principal)

== ENCOUNTER → 2020-07-23 | Outpatient (REF) | payer MEDICARE, OTHER ==
[~2020-07-23] MED LIST changes: +MULTTAB61 PO
[2020-07-23 11:20] LABS: HEMATOCRIT 41.7 % (42.0-52.0); MEAN CORPUSCULAR HEMOGLOBIN 30.4 pg (27.0-33.0); MEAN CORPUSCULAR HGB CONC 33.6 g/dl (32.0-36.5); MEAN CORPUSCULAR VOLUME 90.5 fl (80.0-96.0); PLATELET COUNT, AUTOMATED 265 10^3/uL (150-450); RED BLOOD COUNT 4.61 10^6/uL (4.30-6.10); WHITE BLOOD COUNT 8.3 10^3/uL (4.0-10.0)
[2020-07-23 11:56] LABS: ALBUMIN 4.1 GM/DL (3.2-5.2); ALT/SGPT 39 U/L (12-78); BILIRUBIN,TOTAL 0.8 MG/DL (0.2-1.0); BLOOD UREA NITROGEN 19 MG/DL (7-18); CALCIUM LEVEL 9.2 MG/DL (8.8-10.2); CARBON DIOXIDE LEVEL 27 MEQ/L (21-32); CHLORIDE LEVEL 96 MEQ/L (98-107); CHOLESTEROL LEVEL 123 MG/DL (<200); CHOLESTEROL RISK RATIO 3.324 (<5); CREATININE FOR GFR 1.07 MG/DL (0.70-1.30); FERRITIN 164 NG/ML (26-388); GLOMERULAR FILTRATION RATE > 60.0 (>35); GLUCOSE, FASTING 151 MG/DL (70-100); HDL CHOLESTEROL 37 MG/DL (>40); IRON (FE) 130 UG/DL (65-175); LDL CHOLESTEROL 56 MG/DL (<100); NON-HDL-C 86 MG/DL; PERCENT SATURATION 41.4 % (19.7-50.0); POTASSIUM SERUM 3.9 MEQ/L (3.5-5.1); PROSTATIC SPECIFIC AG MONITOR 0.69 NG/ML (< 4.00); SODIUM LEVEL 132 MEQ/L (136-145); TOTAL IRON BINDING CAPACITY 314 UG/DL (250-450); TOTAL PROTEIN 7.2 GM/DL (6.4-8.2); TRIGLYCERIDES LEVEL 148 MG/DL (<150)
[2020-07-23 13:37] LABS: HEMOGLOBIN A1c 6.7 %
== END ==
LOC: M SFHCADAM 08:14
PROVIDERS: ATTEND Family Medicine
DX: I25.10 Atherosclerotic heart disease of native coronary artery without angina pectoris (principal); D50.0 Iron deficiency anemia secondary to blood loss (chronic); E11.9 Type 2 diabetes mellitus without complications; E78.2 Mixed hyperlipidemia; Z85.46 Personal history of malignant neoplasm of prostate

== ENCOUNTER → 2021-01-02 | Outpatient (REF) | payer MEDICARE, OTHER ==
[2021-01-02 13:36] LABS: BASO # 0.1 10^3/uL (0.0-0.2); EOS # 0.7 10^3/uL (0.0-0.5); EOS % 8.1 % (0.0-3.0); HEMATOCRIT 40.9 % (42.0-52.0); HEMOGLOBIN 13.8 g/dl (13.5-17.5); LYMPH # 2.1 10^3/uL (1.5-5.0); LYMPH % 23.4 % (24.0-44.0); MEAN CORPUSCULAR HGB CONC 33.7 g/dl (32.0-36.5); MEAN CORPUSCULAR VOLUME 91.9 fl (80.0-96.0); MONO # 0.7 10^3/uL (0.0-0.8); MONO % 7.8 % (2.0-8.0); NEUTROPHILS # 5.4 10^3/uL (1.5-8.5); NEUTROPHILS % 59.4 % (36.0-66.0); PLATELET COUNT, AUTOMATED 276 10^3/uL (150-450); RED BLOOD COUNT 4.45 10^6/uL (4.30-6.10)
[2021-01-02 13:55] LABS: ALBUMIN 3.9 GM/DL (3.2-5.2); BILIRUBIN,TOTAL 0.7 MG/DL (0.2-1.0); CALCIUM LEVEL 9.6 MG/DL (8.8-10.2); CREATININE FOR GFR 1.35 MG/DL (0.70-1.30); GLOMERULAR FILTRATION RATE 53.2 (>35); TOTAL PROTEIN 7.2 GM/DL (6.4-8.2)
== END ==
LOC: M LABDRAWC 12:01
PROVIDERS: ATTEND Specialist
DX: C18.9 Malignant neoplasm of colon, unspecified (principal)

== ENCOUNTER → 2021-05-07 | Outpatient (REF) | payer MEDICARE, OTHER ==
[2021-05-07 17:00] LABS: APPEARANCE, URINE CLOUDY (CLEAR); BACTERIA, URINE AUTO NEGATIVE (NEGATIVE); BILIRUBIN, URINE AUTO NEGATIVE (NEGATIVE); BLOOD, URINE BLOOD 1+ (NEGATIVE); COLOR, URINE YELLOW (YELLOW); GLUCOSE, URINE (UA) AUTO NEGATIVE (NEGATIVE); KETONE, URINE AUTO NEGATIVE (NEGATIVE); LEUKOCYTE ESTERASE, URINE AUTO 3+ (NEGATIVE); NITRITE, URINE AUTO NEGATIVE (NEGATIVE); PROTEIN, URINE AUTO 2+ mg/dL (NEGATIVE); RBC, URINE AUTO 5 /HPF (0-3); SPECIFIC GRAVITY URINE AUTO 1.013 (1.002-1.035); SQUAMOUS EPITHELIAL CELL UR AU 0 /HPF (0-6); UROBILINOGEN, URINE AUTO 0.2 mg/dL (0.0-2.0); WBC, URINE AUTO TNTC /HPF (0-3)
== END ==
LOC: M SFHCCLAY 11:30
PROVIDERS: ATTEND Nurse Practitioner Women's Health
DX: R35.0 Frequency of micturition (principal)

== ENCOUNTER → 2021-05-24 | Outpatient (REF) | payer MEDICARE, OTHER ==
[2021-05-24 18:07] LABS: APPEARANCE, URINE TURBID (CLEAR); BACTERIA, URINE AUTO NEGATIVE (NEGATIVE); BILIRUBIN, URINE AUTO NEGATIVE (NEGATIVE); BLOOD, URINE BLOOD 2+ (NEGATIVE); COLOR, URINE AMBER (YELLOW); GLUCOSE, URINE (UA) AUTO NEGATIVE (NEGATIVE); KETONE, URINE AUTO NEGATIVE (NEGATIVE); LEUKOCYTE ESTERASE, URINE AUTO 3+ (NEGATIVE); NITRITE, URINE AUTO NEGATIVE (NEGATIVE); PROTEIN, URINE AUTO 1+ mg/dL (NEGATIVE); RBC, URINE AUTO 8 /HPF (0-3); SPECIFIC GRAVITY URINE AUTO 1.009 (1.002-1.035); SQUAMOUS EPITHELIAL CELL UR AU 0 /HPF (0-6); TRANSITIONAL EPITHELIAL AUTO 2 /HPF; UROBILINOGEN, URINE AUTO 0.2 mg/dL (0.0-2.0); WBC, URINE AUTO TNTC /HPF (0-3)
== END ==
LOC: M SMT 16:53
PROVIDERS: ATTEND Urology
DX: R32 Unspecified urinary incontinence (principal)

== ENCOUNTER → 2021-07-03 | Outpatient (REF) | payer MEDICARE, OTHER ==
[2021-07-03 12:11] LABS: BASO # 0.1 10^3/uL (0.0-0.2); BASO % 0.9 % (0.0-1.0); EOS % 9.6 % (0.0-3.0); HEMATOCRIT 39.4 % (42.0-52.0); HEMOGLOBIN 13.5 g/dl (13.5-17.5); LYMPH # 1.9 10^3/uL (1.5-5.0); LYMPH % 19.1 % (24.0-44.0); MEAN CORPUSCULAR HEMOGLOBIN 30.3 pg (27.0-33.0); MEAN CORPUSCULAR HGB CONC 34.3 g/dl (32.0-36.5); MEAN CORPUSCULAR VOLUME 88.5 fl (80.0-96.0); MONO # 0.7 10^3/uL (0.0-0.8); MONO % 7.4 % (2.0-8.0); NEUTROPHILS # 6.2 10^3/uL (1.5-8.5); NEUTROPHILS % 62.7 % (36.0-66.0); PLATELET COUNT, AUTOMATED 325 10^3/uL (150-450); RED BLOOD COUNT 4.45 10^6/uL (4.30-6.10); WHITE BLOOD COUNT 9.9 10^3/uL (4.0-10.0)
[2021-07-03 12:36] LABS: ALBUMIN 3.8 GM/DL (3.2-5.2); BILIRUBIN,TOTAL 0.7 MG/DL (0.2-1.0); CALCIUM LEVEL 9.3 MG/DL (8.8-10.2); CREATININE FOR GFR 1.44 MG/DL (0.70-1.30); GLOMERULAR FILTRATION RATE 49.3 (>35); POTASSIUM SERUM 3.6 MEQ/L (3.5-5.1); TOTAL PROTEIN 7.1 GM/DL (6.4-8.2)
== END ==
LOC: M LABDRAWC 11:16
PROVIDERS: ATTEND Specialist
DX: C18.9 Malignant neoplasm of colon, unspecified (principal)

== ENCOUNTER → 2021-07-10 | Outpatient (REF) | payer MEDICARE, OTHER ==
[~2021-07-10] MED LIST changes: +FOSI10TA44 PO; +INDA125TA PO
== END ==
LOC: M LABDRAWC 15:50
PROVIDERS: ATTEND Specialist
DX: C18.9 Malignant neoplasm of colon, unspecified (principal)

== ENCOUNTER → 2021-08-06 | Outpatient (CLI) | payer MEDICARE, OTHER | LOC: M PLARAD 10:14 | PROVIDERS: ATTEND Nurse Practitioner | DX: C18.8 Malignant neoplasm of overlapping sites of colon (principal) | CPT/HCPCS: 78815; A9552 ==

== ENCOUNTER → 2021-08-08 | Outpatient (REF) | payer MEDICARE, OTHER ==
[2021-08-08 11:48] LABS: BASO # 0.1 10^3/uL (0.0-0.2); BASO % 0.6 % (0.0-1.0); EOS # 0.5 10^3/uL (0.0-0.5); EOS % 4.5 % (0.0-3.0); HEMATOCRIT 38.5 % (42.0-52.0); HEMOGLOBIN 13.1 g/dl (13.5-17.5); LYMPH # 1.7 10^3/uL (1.5-5.0); MONO # 0.8 10^3/uL (0.0-0.8); MONO % 7.7 % (2.0-8.0); NEUTROPHILS # 7.7 10^3/uL (1.5-8.5); NEUTROPHILS % 70.6 % (36.0-66.0); PLATELET COUNT, AUTOMATED 330 10^3/uL (150-450); RED BLOOD COUNT 4.23 10^6/uL (4.30-6.10); WHITE BLOOD COUNT 10.9 10^3/uL (4.0-10.0)
[2021-08-08 12:17] LABS: ALBUMIN 3.6 GM/DL (3.2-5.2); BILIRUBIN,TOTAL 0.6 MG/DL (0.2-1.0); CALCIUM LEVEL 9.7 MG/DL (8.8-10.2); CREATININE FOR GFR 1.54 MG/DL (0.70-1.30); GLOMERULAR FILTRATION RATE 45.6 (>35); TOTAL PROTEIN 7.2 GM/DL (6.4-8.2)
== END ==
LOC: M LABDRAWC 11:26
PROVIDERS: ATTEND Specialist
DX: C61 Malignant neoplasm of prostate (principal)

== ENCOUNTER → 2021-08-23 | Outpatient (REF) | payer MEDICARE, OTHER | LOC: M LABSMT 09:05 | PROVIDERS: ATTEND Urology | DX: Z85.46 Personal history of malignant neoplasm of prostate (principal) ==

== ENCOUNTER → 2021-10-22 | Outpatient (REF) | payer MEDICARE, OTHER ==
[~2021-10-22] MED LIST changes: +INDA1.253 PO; -INDA125TA PO
[2021-10-22 12:39] LABS: HEMOGLOBIN A1c 6.4 %
[2021-10-22 12:55] LABS: ALBUMIN 3.8 GM/DL (3.2-5.2); BILIRUBIN,TOTAL 0.5 MG/DL (0.2-1.0); CALCIUM LEVEL 9.4 MG/DL (8.8-10.2); CHOLESTEROL RISK RATIO 3.297 (<5); CREATININE FOR GFR 1.39 MG/DL (0.70-1.30); GLOMERULAR FILTRATION RATE 51.3 (>35); POTASSIUM SERUM 3.9 MEQ/L (3.5-5.1)
== END ==
LOC: M SFHCCLAY 08:10
PROVIDERS: ATTEND Physician Assistant
DX: E78.2 Mixed hyperlipidemia (principal); E11.9 Type 2 diabetes mellitus without complications

== ENCOUNTER → 2021-12-19 | Outpatient (REF) | payer MEDICARE, OTHER | LOC: M LABDRAWC 11:38 | PROVIDERS: ATTEND Physician Assistant | DX: L40.0 Psoriasis vulgaris (principal) ==

== ENCOUNTER → 2021-12-19 | Outpatient (REF) | payer MEDICARE, OTHER ==
[~2021-12-19] MED LIST changes: +METR0.7526 TOP; -METR0.7533 TOP
[2021-12-19 12:48] LABS: ALBUMIN 3.7 GM/DL (3.2-5.2); BILIRUBIN,TOTAL 0.5 MG/DL (0.2-1.0); CALCIUM LEVEL 9.2 MG/DL (8.8-10.2); CREATININE FOR GFR 1.49 MG/DL (0.70-1.30); GLOMERULAR FILTRATION RATE 47.4 (>35); POTASSIUM SERUM 4.3 MEQ/L (3.5-5.1)
== END ==
LOC: M LABSMT 08:22
PROVIDERS: ATTEND Urology
DX: N13.30 Unspecified hydronephrosis (principal)

== ENCOUNTER → 2022-01-28 | Outpatient (REF) | payer MEDICARE, OTHER ==
[2022-01-28 11:54] LABS: CALCIUM LEVEL 9.3 MG/DL (8.3-10.6); CREATININE FOR GFR 1.45 MG/DL (0.70-1.30); GLOMERULAR FILTRATION RATE 48.9 (>35); POTASSIUM SERUM 4.5 MMOL/L (3.5-5.1)
== END ==
LOC: M SFHCCLAY 08:18
PROVIDERS: ATTEND Physician Assistant
DX: N13.30 Unspecified hydronephrosis (principal)

== ENCOUNTER → 2022-05-12 | Outpatient (REF) | payer MEDICARE, OTHER ==
[2022-05-12 11:44] LABS: CALCIUM LEVEL 8.9 MG/DL (8.3-10.6); CREATININE FOR GFR 1.35 MG/DL (0.70-1.30); GLOMERULAR FILTRATION RATE 53.1 (>35); POTASSIUM SERUM 4.5 MMOL/L (3.5-5.1)
== END ==
LOC: M SFHCCLAY 08:29
PROVIDERS: ATTEND Physician Assistant
DX: R33.9 Retention of urine, unspecified (principal)

== ENCOUNTER → 2022-05-28 | Outpatient (REF) | payer MEDICARE, OTHER | LOC: M SFHCADAM 15:00 | PROVIDERS: ATTEND Family Medicine | DX: I11.9 Hypertensive heart disease without heart failure (principal); I25.10 Atherosclerotic heart disease of native coronary artery without angina pectoris; D50.0 Iron deficiency anemia secondary to blood loss (chronic); E78.2 Mixed hyperlipidemia; E11.9 Type 2 diabetes mellitus without complications ==

== ENCOUNTER → 2022-05-29 | Outpatient (CLI) | payer MEDICARE, OTHER | LOC: M CLY 08:23 | PROVIDERS: ATTEND Family Medicine | DX: R07.81 Pleurodynia (principal) ==

== ENCOUNTER 2023-01-25 15:33 | Inpatient (IN) | payer MEDICARE, OTHER ==
[~2023-01-25] VITALS: Ht 152.4 cm; Wt 77.5 kg
[2023-01-25] MEDS ORDERED: NS 1,000 ML IV SCH (15:50)
[2023-01-25 16:53] LABS: VENOUS BASE EXCESS -4.8 (-2.0-2.0); VENOUS HCO3 18.8 MMOL/L (23.0-27.0); VENOUS O2 SATURATION 82.5 % (60.0-80.0); VENOUS PARTIAL PRESSURE CO2 31.8 mmHg (38.0-50.0); VENOUS PARTIAL PRESSURE O2 44.6 mmHg (30.0-50.0); VENOUS STANDARD HCO3 20.2 MMOL/L; VENOUS TOTAL CO2 19.8 MMOL/L (24.0-28.0)
[2023-01-25 17:19] LABS: BASO % 0.2 % (0.0-1.0); EOS % 0.1 % (0.0-3.0); HEMATOCRIT 45.3 % (42.0-52.0); HEMOGLOBIN 15.8 g/dl (13.5-17.5); LYMPH # 0.7 10^3/uL (1.5-5.0); LYMPH % 4.7 % (24.0-44.0); MEAN CORPUSCULAR HEMOGLOBIN 29.8 pg (27.0-33.0); MEAN CORPUSCULAR HGB CONC 34.9 g/dl (32.0-36.5); MEAN CORPUSCULAR VOLUME 85.5 fl (80.0-96.0); MONO # 0.9 10^3/uL (0.0-0.8); MONO % 6.5 % (2.0-8.0); NEUTROPHILS # 12.4 10^3/uL (1.5-8.5); NEUTROPHILS % 87.9 % (36.0-66.0); PLATELET COUNT, AUTOMATED 416 10^3/uL (150-450); WHITE BLOOD COUNT 14.1 10^3/uL (4.0-10.0)
[2023-01-25 17:26] LABS: ALBUMIN 3.4 G/DL (3.2-5.2); BILIRUBIN,DIRECT 0.2 MG/DL (<0.4); BILIRUBIN,TOTAL 0.5 MG/DL (0.3-1.2); CALCIUM LEVEL 9.6 MG/DL (8.3-10.6); CREATININE FOR GFR 2.11 MG/DL (0.70-1.30); GLOMERULAR FILTRATION RATE 31.6 (>35); POTASSIUM SERUM 5.3 MMOL/L (3.5-5.1); TOTAL PROTEIN 7.2 G/DL (5.7-8.2)
[2023-01-25 17:28] LABS: THYROID STIMULATING HORMONE 1.237 uIU/ML (0.55-4.78)
[2023-01-25] MEDS ORDERED: MOM 30ML SUSPENSION UDC PO PRN (17:50)
[2023-01-25] MEDS ORDERED: ACETAMINOPHEN TAB 650MG DOSE (2X325MG) PO PRN (17:50)
[2023-01-25] MEDS ORDERED: FINA5TAB2 PO (18:38)
[2023-01-25] MEDS ORDERED: TAMS1CAP17 PO (18:38)
[2023-01-25] MEDS ORDERED: HOME MED LIST COMPLETE! XX SCH (18:40)
[2023-01-25] MEDS ORDERED: PATIROMER SORBITEX CALCIUM 8.4 GM POWDER PACKET (VELTASSA) PO ONE (18:55)
[2023-01-25 18:59] LABS: ERYTHROCYTE SEDIMENTATION RATE > 130 mm/hr (0-20)
[2023-01-25 19:07] LABS: PROCALCITONIN 0.13 ng/ml
[2023-01-25] MEDS ORDERED: GLUCOSE 4GM CHEW TABLET PO PRN (19:25)
[2023-01-25] MEDS ORDERED: GLUCAGON INJ 1MG VIAL SC PRN (19:25)
[2023-01-25] MEDS ORDERED: DEXTROSE 50% 50ML SYRINGE IV PRN (19:25)
[2023-01-25 19:53] LABS: INR 1.19; PROTHROMBIN TIME 14.8 SECONDS (12.5-14.5)
[2023-01-25] MEDS ORDERED: SODIUM BICARBONATE 150 MEQ in D5W 1,000 ML IV SCH (20:00)
[2023-01-25 20:39] LABS: HEMOGLOBIN A1c 7.3 % (4.0-6.0)
[2023-01-25] MEDS: DOCUSATE SODIUM 100MG CAPSULE PO SCH (21:00)
[2023-01-25] MEDS: PIPERACILLIN/TAZOBACTAM SOD 2.25 GM in D5W MINI-BAG PLUS 50 ML IV SCH (21:24)
[2023-01-25 22:16] VITALS: BP 128/71; TEMP 97.5; O2SAT 90
[2023-01-26] VITALS: BP 139/70; TEMP 97.5; O2SAT 97
[2023-01-26] MEDS: HEPARIN SOD (PORCINE) 5000UNITS/ML 1ML VIAL/SYRINGE SQ SCH ×2 (00:18→05:52)
[2023-01-26] MEDS: INSULIN LISPRO (NovoLOG) PER UNIT SC SCH ×5 (00:19→21:00)
[2023-01-26] MEDS: PIPERACILLIN/TAZOBACTAM SOD 2.25 GM in D5W MINI-BAG PLUS 50 ML IV SCH ×4 (01:27→21:47)
[2023-01-26 04:00] VITALS: BP 103/67; TEMP 97.5; O2SAT 95
[2023-01-26 06:16] LABS: VENOUS HCO3 21.8 MMOL/L (23.0-27.0); VENOUS TOTAL CO2 22.6 MMOL/L (24.0-28.0)
[2023-01-26 06:17] LABS: VENOUS BASE EXCESS 0.7 (-2.0-2.0); VENOUS O2 SATURATION 98.7 % (60.0-80.0); VENOUS PARTIAL PRESSURE CO2 26.6 mmHg (38.0-50.0); VENOUS PARTIAL PRESSURE O2 122.2 mmHg (30.0-50.0); VENOUS PH 7.531 UNITS (7.330-7.430); VENOUS STANDARD HCO3 25.1 MMOL/L
[2023-01-26 06:25] LABS: BASO # 0.1 10^3/uL (0.0-0.2); BASO % 0.5 % (0.0-1.0); EOS # 0.1 10^3/uL (0.0-0.5); EOS % 1.1 % (0.0-3.0); HEMATOCRIT 41.8 % (42.0-52.0); HEMOGLOBIN 14.5 g/dl (13.5-17.5); LYMPH # 1.5 10^3/uL (1.5-5.0); LYMPH % 13.5 % (24.0-44.0); MEAN CORPUSCULAR HGB CONC 34.7 g/dl (32.0-36.5); MEAN CORPUSCULAR VOLUME 83.6 fl (80.0-96.0); MONO # 0.8 10^3/uL (0.0-0.8); MONO % 6.9 % (2.0-8.0); NEUTROPHILS # 8.4 10^3/uL (1.5-8.5); NEUTROPHILS % 77.6 % (36.0-66.0); PLATELET COUNT, AUTOMATED 379 10^3/uL (150-450); WHITE BLOOD COUNT 10.9 10^3/uL (4.0-10.0)
[2023-01-26 06:55] LABS: CORTISOL AM 25.5 UG/DL (4.3-22.4)
[2023-01-26 06:56] LABS: CREATININE FOR GFR 1.96 MG/DL (0.70-1.30); GLOMERULAR FILTRATION RATE 34.5 (>35); POTASSIUM SERUM 4.3 MMOL/L (3.5-5.1)
[2023-01-26] MEDS: TAMSULOSIN 0.4 MG CAP PO SCH ×2 (08:49→09:00)
[2023-01-26] MEDS: MULTIVITAMINS/MINERALS THERAP 1 TAB PO SCH ×2 (08:49→09:00)
[2023-01-26] MEDS: FINASTERIDE 5MG TAB PO SCH ×2 (08:49→09:00)
[2023-01-26] MEDS: DOCUSATE SODIUM 100MG CAPSULE PO SCH ×3 (08:49→21:47)
[2023-01-26] MEDS: ATORVASTATIN 10 MG TAB PO SCH ×2 (08:49→09:00)
[2023-01-26] MEDS: LR 1,000 ML IV SCH ×2 (09:59→16:05)
[2023-01-26 10:00] VITALS: BP 123/81; TEMP 97.2; O2SAT 99
[2023-01-26 14:00] VITALS: BP 114/78; TEMP 97.2; O2SAT 98
[2023-01-26 18:00] VITALS: BP 105/71; TEMP 97.3; O2SAT 98
[2023-01-26 20:13] VITALS: BP 124/70; TEMP 97.2; O2SAT 98
[2023-01-27 02:00] VITALS: BP 136/65; TEMP 97.2; O2SAT 98
[2023-01-27] MEDS: PIPERACILLIN/TAZOBACTAM SOD 2.25 GM in D5W MINI-BAG PLUS 50 ML IV SCH ×4 (03:00→20:56)
[2023-01-27 06:14] VITALS: BP 110/71; TEMP 97.5; O2SAT 97
[2023-01-27 06:20] LABS: BASO # 0.1 10^3/uL (0.0-0.2); BASO % 0.6 % (0.0-1.0); EOS # 0.4 10^3/uL (0.0-0.5); EOS % 4.3 % (0.0-3.0); HEMATOCRIT 41.8 % (42.0-52.0); HEMOGLOBIN 14.2 g/dl (13.5-17.5); LYMPH # 1.9 10^3/uL (1.5-5.0); LYMPH % 19.9 % (24.0-44.0); MEAN CORPUSCULAR HEMOGLOBIN 29.2 pg (27.0-33.0); MONO # 0.7 10^3/uL (0.0-0.8); MONO % 7.7 % (2.0-8.0); NEUTROPHILS # 6.4 10^3/uL (1.5-8.5); NEUTROPHILS % 67.2 % (36.0-66.0); PLATELET COUNT, AUTOMATED 348 10^3/uL (150-450); RED BLOOD COUNT 4.86 10^6/uL (4.30-6.10); WHITE BLOOD COUNT 9.5 10^3/uL (4.0-10.0)
[2023-01-27 06:52] LABS: CALCIUM LEVEL 8.7 MG/DL (8.3-10.6); CREATININE FOR GFR 1.86 MG/DL (0.70-1.30); GLOMERULAR FILTRATION RATE 36.6 (>35); POTASSIUM SERUM 4.2 MMOL/L (3.5-5.1)
[2023-01-27] MEDS: MULTIVITAMINS/MINERALS THERAP 1 TAB PO SCH (08:11)
[2023-01-27] MEDS: ATORVASTATIN 10 MG TAB PO SCH (08:11)
[2023-01-27] MEDS: TAMSULOSIN 0.4 MG CAP PO SCH (08:11)
[2023-01-27] MEDS: FINASTERIDE 5MG TAB PO SCH (08:11)
[2023-01-27] MEDS: INSULIN LISPRO (NovoLOG) PER UNIT SC SCH ×4 (08:12→21:32)
[2023-01-27] MEDS: DOCUSATE SODIUM 100MG CAPSULE PO SCH ×2 (08:12→20:31)
[2023-01-27 10:00] VITALS: BP 109/70; TEMP 97.3; O2SAT 97
[2023-01-27 14:00] VITALS: BP 120/68; TEMP 97.3; O2SAT 99
[2023-01-27 14:09] LABS: C REACTIVE PROTEIN QUANTITATIV 5.4 MG/DL (<1.0)
[2023-01-27 14:18] LABS: PROCALCITONIN 0.1 ng/ml
[2023-01-27] MEDS: HEPARIN SOD (PORCINE) 5000UNITS/ML 1ML VIAL/SYRINGE SQ SCH ×2 (14:55→20:56)
[2023-01-27] MEDS ORDERED: OLANZapine 2.5MG TABLET PO ONE (15:45)
[2023-01-27 18:00] VITALS: BP 129/72; TEMP 97.3; O2SAT 98
[2023-01-27] MEDS: OLANZapine 2.5MG TABLET PO SCH (20:56)
[2023-01-27 21:24] VITALS: BP 120/88; TEMP 97.5; O2SAT 99
[2023-01-28] MEDS: PIPERACILLIN/TAZOBACTAM SOD 2.25 GM in D5W MINI-BAG PLUS 50 ML IV SCH ×2 (01:54→09:43)
[2023-01-28 02:00] VITALS: BP 121/84; TEMP 97.5; O2SAT 98
[2023-01-28 05:12] VITALS: BP 128/80; TEMP 97.5; O2SAT 97
[2023-01-28] MEDS: HEPARIN SOD (PORCINE) 5000UNITS/ML 1ML VIAL/SYRINGE SQ SCH ×3 (05:12→21:22)
[2023-01-28 05:55] LABS: BASO # 0.1 10^3/uL (0.0-0.2); BASO % 0.7 % (0.0-1.0); EOS # 0.4 10^3/uL (0.0-0.5); EOS % 3.5 % (0.0-3.0); HEMATOCRIT 45.6 % (42.0-52.0); HEMOGLOBIN 15.3 g/dl (13.5-17.5); LYMPH # 1.6 10^3/uL (1.5-5.0); LYMPH % 15.8 % (24.0-44.0); MEAN CORPUSCULAR HEMOGLOBIN 29.4 pg (27.0-33.0); MEAN CORPUSCULAR HGB CONC 33.6 g/dl (32.0-36.5); MEAN CORPUSCULAR VOLUME 87.5 fl (80.0-96.0); MONO # 0.7 10^3/uL (0.0-0.8); MONO % 7.2 % (2.0-8.0); NEUTROPHILS # 7.3 10^3/uL (1.5-8.5); NEUTROPHILS % 72.4 % (36.0-66.0); PLATELET COUNT, AUTOMATED 354 10^3/uL (150-450); RED BLOOD COUNT 5.21 10^6/uL (4.30-6.10)
[2023-01-28 06:22] LABS: CALCIUM LEVEL 8.8 MG/DL (8.3-10.6); CREATININE FOR GFR 1.77 MG/DL (0.70-1.30); GLOMERULAR FILTRATION RATE 38.8 (>35); POTASSIUM SERUM 4.2 MMOL/L (3.5-5.1)
[2023-01-28] MEDS: FINASTERIDE 5MG TAB PO SCH (09:43)
[2023-01-28] MEDS: ATORVASTATIN 10 MG TAB PO SCH (09:43)
[2023-01-28] MEDS: TAMSULOSIN 0.4 MG CAP PO SCH (09:43)
[2023-01-28] MEDS: DOCUSATE SODIUM 100MG CAPSULE PO SCH ×2 (09:43→21:22)
[2023-01-28] MEDS: MULTIVITAMINS/MINERALS THERAP 1 TAB PO SCH (09:43)
[2023-01-28] MEDS: OLANZapine 2.5MG TABLET PO SCH (09:43)
[2023-01-28] MEDS: INSULIN LISPRO (NovoLOG) PER UNIT SC SCH ×4 (09:44→20:03)
[2023-01-28 10:00] VITALS: BP 124/80; TEMP 97.3; O2SAT 98
[2023-01-28] MEDS ORDERED: OLANZapine 2.5MG TABLET PO PRN (11:15)
[2023-01-28 14:00] VITALS: BP 122/84; TEMP 97; O2SAT 98
[2023-01-28] MEDS: CEFDINIR 300 MG CAP (OMNICEF) PO SCH (14:00)
[2023-01-28 18:00] VITALS: BP 123/83; TEMP 97.2; O2SAT 98
[2023-01-28 20:28] VITALS: BP 125/82; TEMP 97.6; O2SAT 96
[2023-01-29 02:00] VITALS: BP 126/84; TEMP 97.7; O2SAT 95
[2023-01-29 05:14] VITALS: BP 125/84; TEMP 97.5; O2SAT 95
[2023-01-29] MEDS: HEPARIN SOD (PORCINE) 5000UNITS/ML 1ML VIAL/SYRINGE SQ SCH ×3 (05:15→21:07)
[2023-01-29 05:34] LABS: BASO # 0.1 10^3/uL (0.0-0.2); BASO % 0.6 % (0.0-1.0); EOS # 0.3 10^3/uL (0.0-0.5); EOS % 2.3 % (0.0-3.0); HEMATOCRIT 44.8 % (42.0-52.0); HEMOGLOBIN 15.2 g/dl (13.5-17.5); LYMPH # 1.3 10^3/uL (1.5-5.0); LYMPH % 11.8 % (24.0-44.0); MEAN CORPUSCULAR HEMOGLOBIN 29.6 pg (27.0-33.0); MEAN CORPUSCULAR HGB CONC 33.9 g/dl (32.0-36.5); MEAN CORPUSCULAR VOLUME 87.2 fl (80.0-96.0); MONO # 0.6 10^3/uL (0.0-0.8); MONO % 5.1 % (2.0-8.0); NEUTROPHILS # 8.6 10^3/uL (1.5-8.5); NEUTROPHILS % 79.8 % (36.0-66.0); PLATELET COUNT, AUTOMATED 363 10^3/uL (150-450); RED BLOOD COUNT 5.14 10^6/uL (4.30-6.10); WHITE BLOOD COUNT 10.7 10^3/uL (4.0-10.0)
[2023-01-29 05:53] LABS: CALCIUM LEVEL 9.1 MG/DL (8.3-10.6); CREATININE FOR GFR 1.82 MG/DL (0.70-1.30); GLOMERULAR FILTRATION RATE 37.5 (>35); POTASSIUM SERUM 4.3 MMOL/L (3.5-5.1)
[2023-01-29] MEDS: INSULIN LISPRO (NovoLOG) PER UNIT SC SCH ×4 (07:30→20:20)
[2023-01-29 10:00] VITALS: BP 126/96; TEMP 97; O2SAT 95
[2023-01-29] MEDS: MULTIVITAMINS/MINERALS THERAP 1 TAB PO SCH (10:24)
[2023-01-29] MEDS: ATORVASTATIN 10 MG TAB PO SCH (10:24)
[2023-01-29] MEDS: DOCUSATE SODIUM 100MG CAPSULE PO SCH ×2 (10:24→21:07)
[2023-01-29] MEDS: FINASTERIDE 5MG TAB PO SCH (10:24)
[2023-01-29] MEDS: CEFDINIR 300 MG CAP (OMNICEF) PO SCH (10:24)
[2023-01-29] MEDS: TAMSULOSIN 0.4 MG CAP PO SCH (10:25)
[2023-01-29] MEDS: NS 1,000 ML IV SCH (12:21)
[2023-01-29 14:00] VITALS: BP 149/81; TEMP 98.8; O2SAT 97
[2023-01-29 18:00] VITALS: BP 136/83; TEMP 98; O2SAT 97
[2023-01-29 20:07] VITALS: BP 134/84; TEMP 97.3; O2SAT 93
[2023-01-30] MEDS: NS 1,000 ML IV SCH (01:19)
[2023-01-30] MEDS: HEPARIN SOD (PORCINE) 5000UNITS/ML 1ML VIAL/SYRINGE SQ SCH (05:16)
[2023-01-30 06:12] LABS: BASO # 0.1 10^3/uL (0.0-0.2); BASO % 0.5 % (0.0-1.0); EOS # 0.6 10^3/uL (0.0-0.5); EOS % 4.5 % (0.0-3.0); HEMATOCRIT 46.6 % (42.0-52.0); HEMOGLOBIN 15.2 g/dl (13.5-17.5); LYMPH # 1.8 10^3/uL (1.5-5.0); LYMPH % 14.3 % (24.0-44.0); MEAN CORPUSCULAR HEMOGLOBIN 28.7 pg (27.0-33.0); MEAN CORPUSCULAR HGB CONC 32.6 g/dl (32.0-36.5); MEAN CORPUSCULAR VOLUME 88.1 fl (80.0-96.0); MONO # 0.8 10^3/uL (0.0-0.8); MONO % 5.8 % (2.0-8.0); NEUTROPHILS # 9.6 10^3/uL (1.5-8.5); NEUTROPHILS % 74.4 % (36.0-66.0); PLATELET COUNT, AUTOMATED 378 10^3/uL (150-450); RED BLOOD COUNT 5.29 10^6/uL (4.30-6.10); WHITE BLOOD COUNT 12.9 10^3/uL (4.0-10.0)
[2023-01-30 06:40] LABS: CALCIUM LEVEL 8.7 MG/DL (8.3-10.6); CREATININE FOR GFR 1.75 MG/DL (0.70-1.30); GLOMERULAR FILTRATION RATE 39.3 (>35); POTASSIUM SERUM 4.4 MMOL/L (3.5-5.1)
[2023-01-30] MEDS ORDERED: NS 1,000 ML IV ONE (08:00)
[2023-01-30] MEDS: INSULIN LISPRO (NovoLOG) PER UNIT SC SCH ×2 (09:10→12:32)
[2023-01-30] MEDS: CEFDINIR 300 MG CAP (OMNICEF) PO SCH (09:11)
[2023-01-30] MEDS: TAMSULOSIN 0.4 MG CAP PO SCH (09:11)
[2023-01-30] MEDS: ATORVASTATIN 10 MG TAB PO SCH (09:11)
[2023-01-30] MEDS: DOCUSATE SODIUM 100MG CAPSULE PO SCH (09:11)
[2023-01-30] MEDS: FINASTERIDE 5MG TAB PO SCH (09:11)
[2023-01-30] MEDS: MULTIVITAMINS/MINERALS THERAP 1 TAB PO SCH (09:11)
[2023-01-30] MEDS ORDERED: ATROPINE SULFATE 1% OPHTH SOLN 2ML BTL SL PRN (14:25)
[2023-01-30] MEDS ORDERED: SCOPOLAMINE 1MG TRANSDERMAL PATCH TOP PRN (14:25)
[2023-01-30] MEDS ORDERED: FLEET ENEMA PR PRN (14:25)
[2023-01-30] MEDS ORDERED: LORazepam 2 MG/ML 1ML VIAL IV PRN (14:25)
[2023-01-30] MEDS ORDERED: LORazepam 1 MG TAB PO PRN (14:25)
[2023-01-30] MEDS ORDERED: BISACODYL 10MG SUPP PR PRN (14:25)
[2023-01-30] MEDS ORDERED: ONDANSETRON 4MG ORAL DISINTEGRATING TAB PO PRN (14:25)
[2023-01-30] MEDS ORDERED: ACETAMINOPHEN TAB 650MG DOSE (2X325MG) PO PRN (14:25)
[2023-01-30] MEDS ORDERED: ACETAMINOPHEN 650MG SUPP PR PRN (14:25)
[2023-01-30] MEDS ORDERED: ONDANSETRON 4MG 2ML VIAL IV PRN (14:25)
[2023-01-30] MEDS: MORPHINE 10MG/0.5ML ORAL CONCENTRATE SOLUTION U/D SL PRN ×2 (15:40→22:48)
[2023-01-31] MEDS: MORPHINE 10MG/0.5ML ORAL CONCENTRATE SOLUTION U/D SL PRN (21:34)
[2023-02-01] MEDS: MORPHINE 2 MG/ML 1ML VIAL IV PRN (02:32)
[2023-02-01] MEDS: MORPHINE 10MG/0.5ML ORAL CONCENTRATE SOLUTION U/D SL PRN (13:46)
[2023-02-02] MEDS: MORPHINE 2 MG/ML 1ML VIAL IV PRN (06:28)
[2023-02-02] MEDS: MORPHINE 10MG/0.5ML ORAL CONCENTRATE SOLUTION U/D SL PRN ×2 (12:38→21:51)
[2023-02-03] MEDS: MORPHINE 10MG/0.5ML ORAL CONCENTRATE SOLUTION U/D SL PRN ×3 (01:39→15:39)
[2023-02-03] MEDS: HYOSCYAMINE SULFATE 0.125 MG SUBL TABLET PO PRN ×2 (12:57→17:34)
== END 2023-02-03 19:49 | disposition expired | DRG 682 ==
LOC: M ED 15:33 → M ED INP 17:47 → ENRESERV 20:20 → CANRESERV 20:20 → ENRESERV 20:38 → M MSPAV 22:17
PROVIDERS: ADMIT Student in an Organized Health Care Education/Training Program; ATTEND Family Medicine
DX: N17.0 Acute kidney failure with tubular necrosis (principal); G93.41 Metabolic encephalopathy; A41.9 Sepsis, unspecified organism; E87.20 Acidosis, unspecified; N39.0 Urinary tract infection, site not specified; F02.C11 Dementia in other diseases classified elsewhere, severe, with agitation; N13.4 Hydroureter; E87.1 Hypo-osmolality and hyponatremia; G30.9 Alzheimer's disease, unspecified; N13.30 Unspecified hydronephrosis; R32 Unspecified urinary incontinence; N40.1 Benign prostatic hyperplasia with lower urinary tract symptoms; E11.65 Type 2 diabetes mellitus with hyperglycemia; M19.90 Unspecified osteoarthritis, unspecified site; R29.6 Repeated falls; L40.50 Arthropathic psoriasis, unspecified; N18.30 Chronic kidney disease, stage 3 unspecified; E87.5 Hyperkalemia; I25.10 Atherosclerotic heart disease of native coronary artery without angina pectoris; E78.5 Hyperlipidemia, unspecified; E11.22 Type 2 diabetes mellitus with diabetic chronic kidney disease; R33.9 Retention of urine, unspecified; Z51.5 Encounter for palliative care; Z92.3 Personal history of irradiation; Z85.46 Personal history of malignant neoplasm of prostate; Z85.038 Personal history of other malignant neoplasm of large intestine; Z85.828 Personal history of other malignant neoplasm of skin; Z87.891 Personal history of nicotine dependence; D50.9 Iron deficiency anemia, unspecified; Z66 Do not resuscitate; Z88.8 Allergy status to other drugs, medicaments and biological substances; Z88.7 Allergy status to serum and vaccine; Z79.899 Other long term (current) drug therapy; R57.1 Hypovolemic shock